=== PATIENT | female | born 1975 ===

== ENCOUNTER 2020-06-04 06:48 | Day surgery (SDC) | payer BC ==
[~2020-06-04 06:48] MED LIST: Lactated Ringers 1,000 ML IV SCH
[2020-06-04] MEDS ORDERED: Ondansetron 4 MG/2 ML SDV ONE (07:07)
[2020-06-04] MEDS ORDERED: Glycopyrrolate 0.2 MG/ML SDV ONE (07:07)
[2020-06-04] MEDS ORDERED: Lidocaine 2% 5 ML SDV ONE (07:07)
[2020-06-04] MEDS ORDERED: Rocuronium Bromide 50 MG/5 ML Syringe ONE (07:07)
[2020-06-04] MEDS ORDERED: Midazolam 1 MG/ML 2 ML SDV ONE (07:08)
[2020-06-04] MEDS ORDERED: Propofol 200 MG/20 ML SDV ONE (07:08)
[2020-06-04] MEDS ORDERED: fentaNYL 250 MCG/5 ML SDV ONE (07:08)
[2020-06-04] MEDS ORDERED: Methylene Blue 50 MG/10 ML Ampule ONE (07:27)
[2020-06-04] MEDS ORDERED: Fluorescein 5 ML Vial ONE (07:27)
[2020-06-04] MEDS ORDERED: Neomycin/Polymyxin B Bladder Irrigation 1 ML Amp ONE (07:28)
[2020-06-04] MEDS ORDERED: Bupivacaine 0.25% 10 ML SDV ONE ×2 (07:28→08:19)
--- NOTE | 2020-06-04 07:45 | PCM.PREANE ---
Preanesthetic Assessment - Anesthesia/Transfusion/Family Hx Anesthesia History: Prior Anesthesia Without Reaction Family History of Anesthesia Reaction: No Transfusion History: No Prior Transfusion(s) - Review of Systems General: No Symptoms Pulmonary: No Symptoms Cardiovascular: No Symptoms Gastrointestinal: No Symptoms Neurological: No Symptoms Other: Reports: None - Physical Assessment NPO Status Date: 06/03/20 Vital Signs: Last Vital Signs Temp 98.1 F 06/04/20 07:23 Pulse 68 06/04/20 07:23 Resp 16 06/04/20 07:23 BP 125/62 06/04/20 07:23 Pulse Ox 98 06/04/20 07:23 Height: 5 ft 5.5 in Weight: 72.575 kg Mental Status: Alert & Oriented x3 Airway Class: Mallampati = 2 Dentition: Reports: Normal Dentition ROM/Head Extension: Full Lungs: Clear to Auscultation, Normal Respiratory Effort Cardiovascular: Regular Rate, Regular Rhythm - Lab Values: Laboratory Last Values Blood Type B POSITIVE 06/03/20 14:46 Antibody Screen NEGATIVE 06/03/20 14:46 - Allergies Allergies/Adverse Reactions: Allergies Allergy/AdvReac Type Severity Reaction Status Date / Time No Known Allergies Allergy Verified 06/04/20 07:22 - Anesthesia Plan Pre-Op Medication Ordered: None - Acknowledgements Anesthesia Type Planned: General Anesthesia Pt an Appropriate Candidate for the Planned Anesthesia: Yes Alternatives and Risks of Anesthesia Discussed w Pt/Guardian: Yes Pt/Guardian Understands and Agrees with Anesthesia Plan: Yes PreAnesthesia Questionnaire HEENT History: Reports: None Cardiovascular History: Reports: None Respiratory History: Reports: None Gastrointestinal History: Reports: None Genitourinary History: Other Genitourinary History: stress incontinence [employer] ASSISTANT History: Reports: Dysfunctional Uterine Bleeding, Musculoskeletal History: Reports: None Neurological History: Reports: None Psychiatric History: Reports: Anxiety, Depression Endocrine/Metabolic History: Reports: None Hematologic History: Reports: Iron Deficiency Immunologic History: Reports: None Oncologic (Cancer) History: Reports: None Dermatologic History: Reports: None - Infectious Disease History Infectious Disease History: Reports: None - Past Surgical History Head Surgeries/Procedures: Reports: None HEENT Surgical History: Reports: None Cardiovascular Surgical History: Reports: None Respiratory Surgical History: Reports: None GI Surgical History: Reports: Appendectomy Female Surgical History: Reports: Breast Implant Endocrine Surgical History: Reports: None Neurological Surgical History: Reports: None Musculoskeletal Surgical History: Reports: None Oncologic Surgical History: Reports: None Dermatological Surgical History: Reports: None - SUBSTANCE USE Tobacco Use Status *Q: Never Tobacco User - HOME MEDS Home Medications: Home Meds FLUoxetine HCl [Fluoxetine HCl] 20 mg PO DAILY 05/31/20 [History] LORazepam [Lorazepam] 1 mg PO BEDTIME 05/31/20 [History] Acyclovir 1 tab PO ASDIRECTED PRN 06/01/20 [History] - CURRENT (IN HOUSE) MEDS Current Meds: Current Medications Lactated Ringer's (Ringers, Lactated) 1,000 mls @ 125 mls/hr IV ASDIRECTED KARISSA Last Admin: 06/04/20 07:22 Dose: 125 mls/hr Documented by: Discontinued Medications Bupivacaine HCl (Sensorcaine-Mpf 0.25%) Confirm Administered Dose 20 ml .ROUTE .STK-MED ONE Stop: 06/04/20 07:29 Fentanyl (Sublimaze) Confirm Administered Dose 250 mcg .ROUTE .STK-MED ONE Stop: 06/04/20 07:09 Fluorescein Sodium (Ak-Fluor) Confirm Administered Dose 5 ml .ROUTE .STK-MED ONE Stop: 06/04/20 07:28 Glycopyrrolate (Robinul) Confirm Administered Dose 0.4 mg .ROUTE .STK-MED ONE Stop: 06/04/20 07:08 Lidocaine (Xylocaine-Mpf 2%) Confirm Administered Dose 5 ml .ROUTE .STK-MED ONE Stop: 06/04/20 07:08 Methylene Blue (Provayblue) Confirm Administered Dose 50 mg .ROUTE .STK-MED ONE Stop: 06/04/20 07:28 Midazolam HCl (Versed 1 Mg/Ml) Confirm Administered Dose 2 mg .ROUTE .STK-MED ONE Stop: 06/04/20 07:09 Neomycin/Polymyxin (Neosporin Gu Irrigant) Confirm Administered Dose 1 ml .ROUTE .STK-MED ONE Stop: 06/04/20 07:29 Ondansetron HCl (Zofran) Confirm Administered Dose 4 mg .ROUTE .STK-MED ONE Stop: 06/04/20 07:08 Propofol (Diprivan 20 Ml) Confirm Administered Dose 200 mg .ROUTE .STK-MED ONE Stop: 06/04/20 07:09 Rocuronium [place] (Rocuronium [place]) Confirm Administered Dose 50 mg .ROUTE .[facility] ONE Stop: 06/04/20 07:08
[2020-06-04] MEDS ORDERED: ceFAZolin 1 GM Vial ONE (08:07)
[2020-06-04] MEDS ORDERED: Atropine 0.1 MG/ML 10 ML Syringe IVPUSH PRN ×2 (08:17)
[2020-06-04] MEDS ORDERED: Albuterol 0.083% 2.5 MG/3 ML Neb Soln NEB PRN (08:17)
[2020-06-04] MEDS ORDERED: Naloxone 0.4 MG/ML Syringe IVPUSH PRN (08:17)
[2020-06-04] MEDS ORDERED: EPINEPHrine 1:10,000 1 MG/10 ML Syringe IVPUSH PRN (08:17)
[2020-06-04] MEDS ORDERED: fentaNYL 100 MCG/2 ML SDV IVPUSH PRN (08:17)
[2020-06-04] MEDS ORDERED: 50% Dextrose in Water 50 ML Syringe IVPUSH PRN (08:17)
[2020-06-04] MEDS ORDERED: HYDROmorphone 2 MG/ML Syringe ONE (08:45)
[2020-06-04] MEDS ORDERED: fentaNYL 100 MCG/2 ML SDV ONE (08:49)
[2020-06-04] MEDS ORDERED: Furosemide 40 MG/4 ML VIAL ONE (08:54)
[2020-06-04] MEDS ORDERED: Ketorolac 30 MG/ML SDV IVPUSH ONE (10:09)
[2020-06-04] MEDS ORDERED: Acetaminophen/oxyCODONE 325-5 MG Tab PO PRN ×2 (10:09)
[2020-06-04] MEDS ORDERED: Morphine 4 MG/ML Syringe IVPUSH PRN (10:09)
[2020-06-04] MEDS ORDERED: Ondansetron 4 MG/2 ML SDV IVPUSH PRN (10:09)
[2020-06-04] MEDS ORDERED: Promethazine 25 MG/ML SDV IM PRN (10:09)
--- NOTE | 2020-06-04 10:09 | PCM.OPNOTE ---
- General Post-Op/Procedure Note Date of Surgery/Procedure: 06/04/20 Operative Procedure(s): laparoscopically assisted vaginal hysterectomy with bilateral salpingectomy, cystoscopy and single incision midurethral sling. Findings: Enlarged 10 weeks size uterus, boggy, multiple paratubal cysts on the left tube. On cystoscopy there was no evidence of trauma to the bladder mucosa and bilateral ureteral orifices had good flow of green urine after IV fluoroscein was given. Pre Op Diagnosis: menorrhagia, stress incontinence Post-Op Diagnosis: Same Anesthesia Technique: General ET Tube Primary Surgeon: Isabel Smith Secondary Surgeon: Tiffanie Jimenez Anesthesia Provider: Ranjit St[employer] Educator: Ranjit Scott Pathology: uterus and bilateral fallopian tubes Fluid Replacement, Intraop: 2,100 EBL in mLs: 250 Complications: None Known Condition: Good
[2020-06-04] MEDS ORDERED: Acetaminophen 1,000 MG in Premix Bag 1 BAG IV ONE (10:24)
--- NOTE | 2020-06-04 11:26 | PCM.POSTAN ---
POST ANESTHESIA ASSESSMENT - MENTAL STATUS Mental Status: Alert, Oriented - VITAL SIGNS Vital Signs: Last Vital Signs Temp 98.2 F 06/04/20 09:59 Pulse 72 06/04/20 10:39 Resp 11 L 06/04/20 10:39 BP 128/63 06/04/20 10:39 Pulse Ox 98 06/04/20 10:39 - RESPIRATORY Respiratory Status: Respiratory Rate WNL, Airway Patent, O2 Saturation Stable - CARDIOVASCULAR CV Status: Pulse Rate WNL, Blood Pressure Stable - GASTROINTESTINAL GI Status: No Symptoms - POST OP HYDRATION Hydration Status: Adequate & Stable
[2020-06-04] MEDS: Ketorolac 30 MG/ML SDV IVPUSH SCH ×3 (12:02→22:57)
--- NOTE | 2020-06-04 13:13 | OR ---
SURGEON: Isabel Smith M.D. DATE OF PROCEDURE: 06/04/2020 PREOPERATIVE DIAGNOSES: Menorrhagia, stress urinary incontinence. POSTOPERATIVE DIAGNOSES: Menorrhagia, stress urinary incontinence. PROCEDURES: Laparoscopically-assisted vaginal hysterectomy with bilateral salpingectomy, cystoscopy, and single-incision midurethral sling. PRIMARY SURGEON: Isabel Smith MD ORDER CHECKER: Tiffanie Jimenez MD ANESTHESIA: General endotracheal. FLUIDS: 2100 mL of crystalloid. ESTIMATED BLOOD LOSS: 250 mL. COMPLICATIONS: None known. DISPOSITION: Stable to Recovery. OPERATIVE FINDINGS: Uterus was enlarged, boggy, 10-week size. Left tube had multiple paratubal cysts, otherwise normal-appearing tubes and ovaries. On cystoscopy, there was no evidence of any trauma to the bladder mucosa. There was copious flow of bright green urine after IV fluorescein had been given from bilateral ureteral orifices. BRIEF HISTORY: This is a 44-year-old female. She presents with a long history of menorrhagia, having tried IUD, hormonal medications, having evaluation with ultrasound as well as endometrial biopsy, which showed benign tissue. She has decided to proceed with hysterectomy with risks discussed including bleeding; infection; injury to bowel, bladder, blood vessels, ureters, or other organs; risk of thromboembolic event; and risk of anesthesia. Additionally, she understands that there is some risk of a change in sexual function, although this is unlikely. Additionally, she has stress urinary incontinence and was evaluated with cystoscopy and was recommended to proceed with a single-incision midurethral sling with risks discussed including urinary retention, mesh erosion, pain, bleeding, and dyspareunia. Understanding all these risks, she does desire to proceed. She also understands that there is an approximately 25% chance of acute urinary retention requiring a short-term catheterization on discharge. Understanding all of these, she does desire to proceed. DESCRIPTION OF PROCEDURE: With the patient in dorsal lithotomy position, under adequate general endotracheal anesthesia, the abdomen was prepped with chlorhexidine and the vaginal and perineal area were prepped with Betadine and draped in the usual fashion for abdominal surgery. SCDs were in place. Mcknight catheter had been placed and backfilled with 30 mL of dilute indigo carmine and an appropriate time-out was held. She had received 2 g of Ancef IV. A bimanual examination revealed an anteverted, boggy, 10-week size uterus, wider than tall. A speculum was placed in the vagina. A ZUMI uterine manipulator was placed into the uterine cavity, which measured 10 cm. The speculum was removed from the vagina and the reducing system operator's gloves were changed. Attention was turned abdominally where 2 mL of 0.25% Marcaine was injected inferior to the umbilicus. A 5 mm incision was made with a scalpel. The anterior abdominal wall was elevated. Veress needle was inserted. Opening pressure was 4 mmHg. CO2 was insufflated to develop an adequate pneumoperitoneum of 15 mmHg. The Veress needle was removed. A 5 mm port was placed. Laparoscope was placed into the abdominal cavity. There was no evidence of any trauma from the port placement site. The uterus was elevated. The patient was placed in Trendelenburg position. Two additional ports were placed 2 cm medial and cephalad from the anterior superior iliac spine on the right and the left under direct visualization. The ureters were identified in the medial leaf of the broad ligament, were well below the field of dissection. The left tube was grasped at the tip and the ligament between the tube and ovary was using LigaSure. Proceeding proximally along the mesosalpinx, the LigaSure was used to cauterize and ligate up to the level of the uterine cornua where the LigaSure was then utilized to ligate the broad ligament, opening the round ligament, doubly cauterizing and cutting, and then entering the anterior leaf of the broad ligament. There were very large blood vessels, and I began to dissect and cauterize and ligate the blood vessels using the LigaSure. However, due to the size of blood vessels, I chose to proceed vaginally. This process was repeated on the right side without difficulty, but not attempting to ligate the large uterine vessels with the LigaSure. The anterior leaf of the broad ligament was opened. The bladder flap was developed. The abdomen was then desufflated after the instruments had been removed and attention was then turned vaginally. The retained indigo carmine in the catheter was released. A weighted speculum was placed posteriorly and sidewall retractors were placed. The cervix was grasped with a Fransisco tenaculum and circumscribed using electrocautery. The anterior cul-de-sac was entered and a right angle retractor was placed. The posterior cul-de-sac was entered. Edward-Auvard speculum was placed posteriorly. The uterosacral ligaments were doubly clamped, cut, and ligated with the second ligature retained for support and the pedicle containing the uterine vessels was then isolated, doubly clamped, cut, and doubly ligated with a simple tie followed by Jacqueline ligature of 2-0 Polysorb. The uterus and ovaries were then delivered vaginally. The pedicles were inspected and were hemostatic. The retained uterosacral ligament ligatures were ligated to the vaginal apices bilaterally, and cystoscopy was then performed using sterile water as a distending medium. There was no evidence of any trauma to the bladder mucosa. IV fluorescein and Lasix had been given. There was copious flow of bright green fluorescein stained urine from bilateral ureteral orifices. This being completed, the Mcknight catheter was replaced and the vaginal cuff was closed with a running lock suture of 0 Polysorb. The Mcknight balloon was then palpated delineating the length of the urethra, from the meatus to the level of the balloon, and the anterior vaginal mucosa was grasped with an Allis clamp approximately 1 cm from the urethral meatus and a second clamp was placed approximately 1 cm beyond this. Hydrodissection was then performed and instilling saline beneath the vaginal mucosa and extending laterally toward the pubic ramus on the right and the left. An incision was made between the two Allis clamps and the edges of the vaginal mucosa were grasped. The vagina was then undermined using Metzenbaum scissors directing upward at a 45-degree angle toward the pubic ramus on the right and the left. The Solyx single-incision sling was then prepared. It was treated with Neosporin and placed beneath the vaginal mucosa, aiming at a 45-degree angle until passing beneath the pubic ramus and then angling more laterally toward the obturator foramen until it had pierced the obturator muscle and was then released. This was repeated on the opposite side, but not released until the tape had been inspected, and I was able to easily place a Metzenbaum scissor between the tape and the urethra and the tape was securely fitted. Therefore, it was released and the vaginal mucosa was closed with a running lock suture of 3-0 Vicryl. The vagina was again inspected, was hemostatic, and attention was then turned abdominally where the abdomen was re-insufflated and the pelvis was inspected for hemostasis. There was a small area of bleeding near the left uterosacral ligament that was cauterized with the LigaSure and then Matthew was also applied. With this, there was complete hemostasis both under high and low pressure. Therefore, the abdomen was completely desufflated. The port sites were removed. The skin was closed with a running subcuticular suture of 3-0 Monocryl. Final inspection of the vagina revealed it to be hemostatic. Final sponge, needle, and instrument counts were reported as correct. There were no known complications. The patient was transferred to Recovery in good condition. JANNET AGUIRRE /[id number]
[2020-06-04] MEDS ORDERED: Acetaminophen/HYDROcodone 325-5 MG Tab PO PRN (18:22)
--- NOTE | 2020-06-04 18:25 | PCM.SN.2 ---
- Free Text/Narrative Note: POD#0 after LAVH, midurethral sling. Currently pain 3/10, previously higher before ketorolac. She has heating pad. She feels that the percocet did not work for her pain and made her feel woozy. Reviewed operative findings. Discussed plan for voiding trial in am. Will try Vicodin for pain management. Questions answered. She is going to try regular food this evening.
[2020-06-04] MEDS ORDERED: LORazepam 1 MG Tab PO SCH (21:00)
[2020-06-05] MEDS: Ketorolac 30 MG/ML SDV IVPUSH SCH ×2 (04:11→09:45)
[2020-06-05 07:12] LABS: BLOOD UREA NITROGEN,BUN 5 mg/dL (7.0-18.0); CARBON DIOXIDE,CO2 26.3 mmol/L (21.0-32.0); CHLORIDE,CL 105 mmol/L (98-107); GLUCOSE RANDOM 96 mg/dL (74-106); POTASSIUM,K 3.5 mmol/L (3.5-5.1); SODIUM,NA 138 mmol/L (136-145)
[2020-06-05] MEDS ORDERED: FLUoxetine 20 MG Cap PO SCH (09:00)
--- NOTE | 2020-06-05 10:19 | PCM.SURGPN ---
- General Info Date of Service: 06/05/20 Date of Surgery/Procedure: 06/04/20 POD#: 1 Post-Op Diagnosis: menorrhagia, stress incontinence Functional Status: Reports: Pain Controlled, Tolerating Diet, Ambulating, Urinating (voided 225 after 300 ml instilled) - Review of Systems General: Reports: No Symptoms HEENT: Reports: No Symptoms Pulmonary: Reports: No Symptoms Cardiovascular: Reports: No Symptoms Gastrointestinal: Reports: No Symptoms Genitourinary: Reports: No Symptoms Musculoskeletal: Reports: No Symptoms Skin: Reports: No Symptoms Neurological: Reports: No Symptoms Psychiatric: Reports: No Symptoms - Patient Data Vitals - Most Recent: Last Vital Signs Temp 36.6 C 06/05/20 07:40 Pulse 61 06/05/20 07:40 Resp 14 06/05/20 07:40 BP 108/61 06/05/20 07:40 Pulse Ox 99 06/05/20 07:40 Weight - Most Recent: 72.575 kg I&O - Last 24 Hours: Intake & Output 06/04/20 06/05/20 06/05/20 22:59 06:59 14:59 Intake Total 600 Output Total 100 1050 Balance -100 -450 Lab Results Last 24 Hrs: Laboratory Results - last 24 hr 06/05/20 06/05/20 Range/Units 06:35 06:35 WBC 6.40 (4.0-11.0) K/uL RBC 4.11 L (4.30-5.90) M/uL Hgb 11.5 L (12.0-16.0) g/dL Hct 36.1 (36.0-46.0) % MCV 87.8 (80.0-98.0) fL MCH 28.0 (27.0-32.0) pg MCHC 31.9 (31.0-37.0) g/dL RDW Std Deviation 57.2 (28.0-62.0) fl RDW Coeff of Hamida 18 H (11.0-15.0) % Plt Count 195 (150-400) K/uL MPV 9.10 (7.40-12.00) fL Neut % (Auto) 63.3 (48.0-80.0) % Lymph % (Auto) 28.1 (16.0-40.0) % [place] % (Auto) 7.7 (0.0-15.0) % Eos % (Auto) 0.9 (0.0-7.0) % Baso % (Auto) 0.0 (0.0-1.5) % Neut # (Auto) 4.1 (1.4-5.7) K/uL Lymph # (Auto) 1.8 (0.6-2.4) K/uL [place] # (Auto) 0.5 (0.0-0.8) K/uL Eos # (Auto) 0.1 (0.0-0.7) K/uL Baso # (Auto) 0.0 (0.0-0.1) K/uL Nucleated RBC % 0.0 /100WBC Nucleated RBCs # 0 K/uL Sodium 138 (136-145) mmol/L Potassium 3.5 (3.5-5.1) mmol/L Chloride 105 (98-107) mmol/L Carbon Dioxide 26.3 (21.0-32.0) mmol/L BUN 5 L (7.0-18.0) mg/dL Creatinine 0.8 (0.6-1.0) mg/dL Est Cr Clr Drug Dosing 83.24 mL/min Estimated GFR (MDRD) > 60.0 ml/min Glucose 96 (74-106) mg/dL Calcium 7.9 L (8.5-10.1) mg/dL Med Orders - Current: Current Medications Hydrocodone Bitart/Acetaminophen ([place] 325-5 Mg) 1 tab PO Q6H PRN PRN Reason: Abdominal Pain Last Admin: 06/04/20 19:55 Dose: 1 tab Documented by: Fluoxetine HCl (Prozac) 20 mg PO DAILY [facility] Last Admin: 06/05/20 09:39 Dose: 20 mg Documented by: Ketorolac Tromethamine (Toradol) 30 mg IVPUSH Q6H [facility] Stop: 06/09/20 10:09 Last Admin: 06/05/20 09:45 Dose: 30 mg Documented by: Lorazepam (Ativan) 1 mg PO BEDTIME [facility] Last Admin: 06/04/20 20:34 Dose: 1 mg Documented by: Morphine Sulfate (Morphine) 4 mg IVPUSH Q2H PRN PRN Reason: Pain (severe 7-10) Ondansetron HCl (Zofran) 4 mg IVPUSH Q6H PRN PRN Reason: Nausea/Vomiting Last Admin: 06/04/20 20:04 Dose: 4 mg Documented by: Promethazine HCl (Phenergan) 25 mg IM Q6H PRN PRN Reason: Nausea/Vomiting Discontinued Medications Albuterol (Proventil Neb Soln) 2.5 mg NEB ONETIME PRN PRN Reason: Wheezing Atropine Sulfate (Atropine 0.1 Mg/Ml) 0.5 mg IVPUSH ASDIRECTED PRN PRN Reason: Hypo-perfusion Atropine Sulfate (Atropine 0.1 Mg/Ml) 1 mg IVPUSH ASDIRECTED PRN PRN Reason: Hypo-Perfusion Bupivacaine HCl (Sensorcaine-Mpf 0.25%) Confirm Administered Dose 20 ml .ROUTE .STK-MED ONE Stop: 06/04/20 07:29 Bupivacaine HCl (Sensorcaine-Mpf 0.25%) Confirm Administered Dose 10 ml .ROUTE .STK-MED ONE Stop: 06/04/20 08:20 Cefazolin Sodium (Ancef) Confirm Administered Dose 2 gm .ROUTE .STK-MED ONE Stop: 06/04/20 08:08 Dextrose/Water (Dextrose 50% In Water) 50 ml IVPUSH ASDIRECTED PRN PRN Reason: Hypoglycemia Epinephrine HCl (Epinephrine 1:10,000) 1 mg IVPUSH ASDIRECTED PRN PRN Reason: ACLS Guidelines Fentanyl (Sublimaze) Confirm Administered Dose 250 mcg .ROUTE .STK-MED ONE Stop: 06/04/20 07:09 Fentanyl (Sublimaze) 50 - 100 mcg IVPUSH Q5M PRN PRN Reason: Pain Fentanyl (Sublimaze) Confirm Administered Dose 100 mcg .ROUTE .STK-MED ONE Stop: 06/04/20 08:50 Fluorescein Sodium (Ak-Fluor) Confirm Administered Dose 5 ml .ROUTE .STK-MED ONE Stop: 06/04/20 07:28 Furosemide (Lasix) Confirm Administered Dose 40 mg .ROUTE .STK-MED ONE Stop: 06/04/20 08:55 Glycopyrrolate (Robinul) Confirm Administered Dose 0.4 mg .ROUTE .STK-MED ONE Stop: 06/04/20 07:08 Hydromorphone HCl (Dilaudid) Confirm Administered Dose 2 mg .ROUTE .STK-MED ONE Stop: 06/04/20 08:46 Lactated Ringer's (Ringers, Lactated) 1,000 mls @ 125 mls/hr IV ASDIRECTED KARISSA Last Admin: 06/04/20 07:22 Dose: 125 mls/hr Documented by: Acetaminophen 1,000 mg/ Premix 100 mls @ 400 mls/hr IV NOW ONE Stop: 06/04/20 10:38 Last Admin: 06/04/20 10:25 Dose: 400 mls/hr Documented by: Acetaminophen (Ofirmev) Confirm Administered Dose 100 mls @ as directed .ROUTE .STK-MED ONE Stop: 06/04/20 10:25 Ketorolac Tromethamine (Toradol) 30 mg IVPUSH ONETIME ONE Stop: 06/04/20 10:10 Last Admin: 06/04/20 10:24 Dose: 30 mg Documented by: Lidocaine (Xylocaine-Mpf 2%) Confirm Administered Dose 5 ml .ROUTE .STK-MED ONE Stop: 06/04/20 07:08 Methylene Blue (Provayblue) Confirm Administered Dose 50 mg .ROUTE .STK-MED ONE Stop: 06/04/20 07:28 Midazolam HCl (Versed 1 Mg/Ml) Confirm Administered Dose 2 mg .ROUTE .STK-MED ONE Stop: 06/04/20 07:09 Naloxone HCl (Narcan) 0.1 mg IVPUSH ASDIRECTED PRN PRN Reason: Respiratory Depression Neomycin/Polymyxin (Neosporin Gu Irrigant) Confirm Administered Dose 1 ml .ROUTE .STK-MED ONE Stop: 06/04/20 07:29 Ondansetron HCl (Zofran) Confirm Administered Dose 4 mg .ROUTE .STK-MED ONE Stop: 06/04/20 07:08 Oxycodone/Acetaminophen (Percocet 325-5 Mg) 1 tab PO Q4H PRN PRN Reason: Pain (moderate 4-6) Last Admin: 06/04/20 15:15 Dose: 1 tab Documented by: Oxycodone/Acetaminophen (Percocet 325-5 Mg) 2 tab PO Q4H PRN PRN Reason: Pain (moderate 4-6) Propofol (Diprivan 20 Ml) Confirm Administered Dose 200 mg .ROUTE .STK-MED ONE Stop: 06/04/20 07:09 Rocuronium [place] (Rocuronium [place]) Confirm Administered Dose 50 mg .ROUTE .STK-MED ONE Stop: 06/04/20 07:08 - Exam Wound/Incisions: Dressing Dry and Intact Lungs: Normal Respiratory Effort GI/Abdominal Exam: Soft, Non-Tender, No Distention, No Mass Extremities: Normal Inspection, Normal Range of Motion, Non-Tender, No Pedal Edema, Normal Capillary Refill Skin: Warm, Dry, Intact Psy/Mental Status: Alert, Normal Affect, Normal Mood Sepsis Event Note - Evaluation Sepsis Screening Result: No Definite Risk - Focused Exam Vital Signs: Vital Signs Temp Pulse Resp BP Pulse Ox 06/05/20 07:40 36.6 C 61 14 108/61 99 06/05/20 04:29 36.6 C 69 14 98/57 L 96 06/04/20 23:53 36.1 C 74 16 103/55 L 95 - Problem List & Annotations (1) Menometrorrhagia SNOMED Code(s): 212927058 Code(s): N92.1 - EXCESSIVE AND FREQUENT MENSTRUATION WITH IRREGULAR CYCLE Status: Acute Current Visit: Yes (2) Stress incontinence (female) (male) SNOMED Code(s): 53273799 Code(s): N39.3 - STRESS INCONTINENCE (FEMALE) (MALE) Status: Acute Current Visit: Yes - Problem List Review Problem List Initiated/Reviewed/Updated: Yes - My Orders Last 24 Hours: Active Orders 24 hr Category Date Time Status Patient Status [ADT] Routine ADT 06/04/20 10:09 Active Antiembolic Devices [RC] PER UNIT ROUTINE Care 06/04/20 10:10 Active Notify Provider Intake and Out [RC] ASDIRECTED Care 06/04/20 10:09 Active Notify Provider Vital Signs [RC] ASDIRECTED Care 06/04/20 10:09 Active Oxygen Therapy [RC] ASDIRECTED Care 06/04/20 10:09 Active RT Incentive Spirometry [RC] Q2HWA Care 06/04/20 10:09 Active Ready for Discharge [RC] PER UNIT ROUTINE Care 06/05/20 10:16 Ordered Up With Assistance [RC] PER UNIT ROUTINE Care 06/04/20 10:09 Active Up ad Katherine [RC] PER UNIT ROUTINE Care 06/04/20 10:09 Active Urinary Catheter Removal [RC] ASDIRECTED Care 06/05/20 06:30 Active Vital Signs [RC] PER UNIT ROUTINE Care 06/04/20 10:09 Active Regular Diet [DIET] Diet 06/04/20 Dinner Active Acetaminophen/HYDROcodone [[place] 325-5 MG] Med 06/04/20 18:22 Active 1 tab PO Q6H PRN FLUoxetine [PROzac] Med 06/05/20 09:00 Active 20 mg PO DAILY Ketorolac [Toradol] Med 06/04/20 10:15 Active 30 mg IVPUSH Q6H LORazepam [Ativan] Med 06/04/20 21:00 Active 1 mg PO BEDTIME Morphine Med 06/04/20 10:09 Active 4 mg IVPUSH Q2H PRN Ondansetron [Zofran] Med 06/04/20 10:09 Active 4 mg IVPUSH Q6H PRN Promethazine [Phenergan] Med 06/04/20 10:09 Active 25 mg IM Q6H PRN Peripheral IV Discontinue [OM.PC] Routine Oth 06/04/20 10:09 Ordered Sequential Compression Device [OM.PC] Per Unit Routine Oth 06/04/20 10:09 Ordered Resuscitation Status Routine Resus Stat 06/04/20 10:09 Ordered Medication Orders Hydrocodone Bitart/Acetaminophen ([place] 325-5 Mg) 1 tab PO Q6H PRN PRN Reason: Abdominal Pain Last Admin: 06/04/20 19:55 Dose: 1 tab Documented by: ALEXIA Fluoxetine HCl (Prozac) 20 mg PO DAILY [facility] Last Admin: 06/05/20 09:39 Dose: 20 mg Documented by: SOLOMON Ketorolac Tromethamine (Toradol) 30 mg IVPUSH Q6H [facility] Stop: 06/09/20 10:09 Last Admin: 06/05/20 09:45 Dose: 30 mg Documented by: Admin: 06/05/20 04:11 Dose: 30 mg Documented by: Admin: 06/04/20 22:57 Dose: 30 mg Documented by: Admin: 06/04/20 16:16 Dose: 30 mg Documented by: Admin: 06/04/20 12:02 Dose: Not Given Documented by: DARCI Lorazepam (Ativan) 1 mg PO BEDTIME [facility] Last Admin: 06/04/20 20:34 Dose: 1 mg Documented by: ALEXIA Morphine Sulfate (Morphine) 4 mg IVPUSH Q2H PRN PRN Reason: Pain (severe 7-10) Ondansetron HCl (Zofran) 4 mg IVPUSH Q6H PRN PRN Reason: Nausea/Vomiting Last Admin: 06/04/20 20:04 Dose: 4 mg Documented by: ALEXIA Promethazine HCl (Phenergan) 25 mg IM Q6H PRN PRN Reason: Nausea/Vomiting - Assessment Assessment (Free Text/Narrative):: POD #1 after LAVH, bilateral salpingectomy and single incision midurethral sling. Stable, pain control is better on Vicodin, will discharge with Vicodin and Ibuprofen. - Plan Plan (Free Text/Narrative):: Discussed discharge instructions. Encourage ambulation, hydration, monitor bowel movement and use stool softener if needed.
== END 2020-06-05 11:15 | disposition home or self-care (01) ==
LOC: MW.SDS 06:48 → MW.OB 10:09 → MW.SDS 06-05 11:15
PROVIDERS: ATTEND Obstetrics & Gynecology
DX: N80.0 Endometriosis of uterus (principal); N39.3 Stress incontinence (female) (male); N72 Inflammatory disease of cervix uteri; N83.8 Other noninflammatory disorders of ovary, fallopian tube and broad ligament; D50.0 Iron deficiency anemia secondary to blood loss (chronic); Z79.899 Other long term (current) drug therapy; Z90.89 Acquired absence of other organs; Z80.3 Family history of malignant neoplasm of breast
CPT/HCPCS: 36415; 57288; 58552; 80048; 85025; 86850; 86900; 86901; A9270; J0131; J0690; J1170; J1885; J1940; J2001; J2250; J2405; J2704; J3010; J3490; J7120; 88307; C1771